=== PATIENT | female | born 1940 | race Caucasian/White ===

== ENCOUNTER 2020-11-06 15:42 | Emergency (ER) | payer OTHER ==
[2020-11-06] MEDS ORDERED: ACETAMINOPHEN 500 MG TABLET (FP) PO ONE (16:15)
[2020-11-06 16:33] VITALS: BP 139/71; PULSE 78; TEMP 98; BMI 24.2
[2020-11-06] MEDS ORDERED: ACETAMINOPHEN 325 MG TABLET (FP) ONE (16:34)
[2020-11-06] MEDS ORDERED: KETOROLAC TROMETHAMINE 30 MG/1 ML VIAL IVPUSH ONE (17:11)
[2020-11-06] MEDS ORDERED: KETOROLAC TROMETHAMINE 30 MG/1 ML VIAL ONE (17:12)
[2020-11-06 17:14] LABS: BASO % 1.4 % (0-2.0); EOS % 2.6 % (0-4.5); HEMATOCRIT 36.9 % (32.4-45.2); HEMOGLOBIN 12.5 GM/dl (10.7-15.3); LYMPH % 27.2 % (8-40); MCH 30.7 pg (25.7-33.7); MEAN CELL VOLUME 90.3 fl (80-96); MEAN PLT VOLUME 8.6 fl (7.5-11.1); NEUT % 58.8 % (42.8-82.8); PLATELET COUNT 337 10^3/uL (134-434); RBC 4.08 M/mm3 (3.60-5.2); RDW 13.5 % (11.6-15.6); WHITE BLOOD COUNT 9.7 K/mm3 (4.0-10.8)
[2020-11-06 17:39] LABS: BILIRUBIN,TOTAL 0.6 mg/dl (0.2-1); CALCIUM 9.3 mg/dl (8.5-10); CREATININE 0.7 mg/dl (0.55-1.3); TOT PROT 7.4 g/dl (6.4-8.2)
[2020-11-06] MEDS ORDERED: PRESCRIPTION PAD 1 EACH EACH NR ONE (18:03)
== END 2020-11-06 18:38 | disposition home or self-care (01) ==
LOC: FER 15:42
PROC: 3E0333Z Introduction of Anti-inflammatory into Peripheral Vein, Percutaneous Approach (ICD-10-PCS; principal; 2020-11-06)
DX: M25.561 Pain in right knee (principal)
CPT/HCPCS: 36415; 73562-TC-RT-FY; 80053; 85025; 85651; 86140; 93005; 99283-25; C9803; U0003; U0005

== ENCOUNTER 2021-11-22 12:11 | Emergency (ER) | payer OTHER ==
[2021-11-22 12:39] VITALS: BP 146/70; PULSE 73; RESP 20; TEMP 98.2; BMI 24.2
== END 2021-11-22 15:41 | disposition home or self-care (01) ==
LOC: FER 12:11
DX: S09.90XA Unspecified injury of head, initial encounter (principal); W01.0XXA Fall on same level from slipping, tripping and stumbling without subsequent striking against object, initial encounter
CPT/HCPCS: 70450-TC; 99284-25

== ENCOUNTER 2021-11-26 15:47 | Emergency (ER) | payer OTHER ==
[2021-11-26 16:12] VITALS: BP 124/74; PULSE 71; RESP 18; TEMP 97.8; BMI 28.0
== END 2021-11-26 17:32 | disposition home or self-care (01) ==
LOC: FER 15:47
DX: Z04.3 Encounter for examination and observation following other accident (principal); W01.0XXA Fall on same level from slipping, tripping and stumbling without subsequent striking against object, initial encounter
CPT/HCPCS: 70450-TC; 71045-TC-FY; 72125-TC; 72170-TC-FY; 99285-25